=== PATIENT | male | born 1980 | race Caucasian/White ===

== ENCOUNTER 2018-08-12 12:10 | Day surgery (SDC) | payer BC ==
[2018-08-12 12:45] LABS: Bilirubin Negative (Negative); Blood, Urine Negative (Negative); Clarity CLEAR (Clear); Glucose, Urine (Dipstick) Negative (Negative); Leukocyte Negative (Negative); Nitrite Negative (Negative); Protein, Urine (Dipstick) Negative (Neg-Trace); Specific Gravity, Urine 1.002 (1.002-1.036); Urobilinogen 0.2 mg/dL (0.2-1.0)
[2018-08-12 12:48] LABS: #Lymphocytes 1.7 thou/uL (1.20-3.40); #Monocytes 0.9 thou/uL (0.11-0.59); #Neutrophils 6.8 thou/uL (1.40-6.50); %Basophils 0.2 % (0.0-1.0); %Eosinophils 0.2 % (0.0-10.0); %Lymphocytes 17.9 % (21.0-51.0); %Monocytes 9.4 % (0.0-10.0); %Neutrophils 72.3 % (42.0-75.0); Hemoglobin 15.6 g/dL (14.0-18.0); Mean Corpuscular HGB CONC 32.3 g/dL (32.0-36.0); Mean Corpuscular Hemoglobin 28.4 pg (27.0-31.0); Mean Corpuscular Volume 87.8 fL (78.0-98.0); Mean Platelet Volume 7.8 fL (7.4-10.4); Platelet Count 215 thou/uL (130-400); Red Blood Cell (RBC) Count 5.49 mill/uL (4.70-6.10); White Blood Cell (WBC) Count 9.4 thou/uL (4.8-10.8)
[2018-08-12 13:09] LABS: ALT (SGPT) 40 U/L (8-55); AST (SGOT) 26 U/L (5-34); Alkaline Phosphatase 78 U/L (40-150); Anion Gap 14 mmol/L (10-20); BUN (Urea Nitrogen) 11 mg/dL (8.9-20.6); Bilirubin, Total 0.7 mg/dL (0.2-1.2); Calc. Creatinine Clearance 0 mL/min (70-130); Calcium 10.5 mg/dL (7.8-10.44); Carbon Dioxide 27 mmol/L (22-29); Chloride 97 mmol/L (98-107); Estimated GFR-MDRD 70; Globulin 3.7 g/dL (2.4-3.5); Glucose 94 mg/dL (70-105); Lipase 26 U/L (8-78); Protein, Total 8.7 g/dL (6.0-8.3); Sodium 134 mmol/L (136-145)
[2018-08-12] MEDS ORDERED: Iopamidol 370 76% 100 ML VIAL ONE (14:26)
[2018-08-12] MEDS ORDERED: Dexamethasone 20 MG/5 ML VIAL ONE (14:38)
[2018-08-12] MEDS ORDERED: Succinylcholine Chloride 20 MG/ML 10 ml SYRINGE FS ONE (14:38)
[2018-08-12] MEDS ORDERED: Ketorolac Tromethamine 30 MG/ML VIAL ONE (14:38)
[2018-08-12] MEDS ORDERED: Glycopyrrolate 0.2 MG/ML 5 ML SYRINGE ONE (14:38)
[2018-08-12] MEDS ORDERED: Lidocaine 1% PF 5 ML VIAL ONE (14:38)
[2018-08-12] MEDS ORDERED: PROPOFOL 200 MG/20 ML VIAL ONE (14:38)
[2018-08-12] MEDS ORDERED: Ondansetron PF 4 MG/2 ML Vial ONE (14:38)
--- NOTE | 2018-08-12 14:50 | CT ---
CT OF ABDOMEN AND PELVIS PERFORMED WITH INTRAVENOUS CONTRAST ENHANCEMENT: HISTORY: Right lower quadrant pain since yesterday. FINDINGS: The lung bases show some minimal atelectasis in the right base. Some diffuse fatty changes of the li pancho. The spleen measures approximately 10 cm in length. Pancreas and gallbladder regions appear unr emarkable. Right and left adrenal glands and right and left kidneys are normal in appearance. No significant pe riaortic or mesenteric adenopathy. CT OF PELVIS PERFORMED WITH INTRAVNEOUS CONTRAST ENHANCEMENT: There is an enlarged inflamed-appearing appendix. No signs for perforation or abscess. No free flui d, adenopathy, or mass. IMPRESSION: CT findings compatible with appendicitis. POS: JEAN
[2018-08-12] MEDS ORDERED: Meropenem 2 GM in Admixture Fee 1 EACH IVPB SCH (15:15)
[2018-08-12] MEDS ORDERED: Bupivacaine/Epinephrine 0.25% 30 ML VIAL ONE (16:17)
[2018-08-12] MEDS ORDERED: Midazolam HCl 2 mg/2 ml Vial ONE (16:24)
[2018-08-12] MEDS ORDERED: Fentanyl 250 MCG/5 ML VIAL ONE (16:24)
[2018-08-12] MEDS ORDERED: HYDROcodone/Acetaminophen 5/325 mg Tablet ONE (18:55)
--- NOTE | 2018-08-12 19:23 | HP ---
CHIEF COMPLAINT: Right lower quadrant abdominal pain. HISTORY OF PRESENT ILLNESS: This is a 38-year-old male with a 30-hour history of right lower quadran t pain. No nausea or vomiting. He has had a fever to 101.6. His last meal was at 8:30 this morning yogurts and apple. PAST MEDICAL HISTORY: Hypothyroidism. PAST SURGICAL HISTORY: Wrist surgery. MEDICATIONS: Levothyroxine. ALLERGIES: No known drug allergies. 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 No tobacco, rare alcohol. He is . FAMILY HISTORY: Hypothyroidism and coronary artery disease. PHYSICAL EXAMINATION: VITAL SIGNS: Temperature 99.4, pulse 93, blood pressure 111/74, respirations 17, 97% saturation. GENERAL: He is awake, alert, in no apparent distress. HEENT: Unremarkable. LUNGS: Clear. HEART: Regular rate and rhythm. ABDOMEN: Soft. Percussion tender in the right lower quadrant, positive Rovsing's. He has a CT scan consistent with appendicitis. ASSESSMENT: Acute appendicitis. PLAN: Laparoscopic appendectomy. CONSENT: I discussed the planned procedure as well as risk of bleeding, infection, injury to bowel, bladder, need to open. He understands and gives informed consent.
--- NOTE | 2018-08-12 19:45 | OP ---
PREOPERATIVE DIAGNOSIS: Acute appendicitis. SURGEON: Kaveh Champion MD PROCEDURE PERFORMED: Laparoscopic appendectomy. INDICATIONS: This is a 38-year-old male with a 30-hour history of right lower quadrant pain. CT abdi ws appendicitis. FINDINGS: Acute gangrenous appendicitis, nonperforated. DESCRIPTION OF PROCEDURE: After informed consent was obtained, the [facility] and given general endotracheal anesthesia. He was placed in the supine position. His abdomen was prepped and draped in usual fashion. Local anesthesia infiltrated subcutaneously and deep. A s ubumbilical incision was performed. Subcu divided sharply. The fascia was grasped. Two stay suture s of 0 Vicryl was placed to either side of midline. Midline was incised. Digital palpation revealed no local adhesions. A blunt 10/12-mm trocar was inserted. Pneumoperitoneum was created to a pressu re of 15 mmHg. Zero-degree laparoscope was inserted under direct vision. Two 5-mm ports were placed , one suprapubic and one right lateral abdomen. The appendix was plastered against the side wall. T he ileum was attached to it. This was bluntly dissected away. The mesoappendix was divided utilizin g the LigaSure. Base of the appendix divided with the linear 45-mm stapler. The appendix was placed in an Endosac and removed from the abdomen in an Endosac through the umbilical incision. Hemostasis was assured. I noticed there was a serosal tear of about 2 mm in the cecum from a grasper. This wa s closed with a 2-0 silk [id number] tied intracorporeally. Hemostasis was assured. Trocars and retractors were removed. The fascia was closed with interrupted 0 Vicryl suture. The skin was clos ed with interrupted 4-0 Rapide. Dermabond was applied. The patient tolerated the procedure well, tr ansferred to recovery in good condition. Sponge and needle count verified and correct x2.
== END 2018-08-12 20:10 | disposition home or self-care (01) ==
LOC: ERS 12:10
PROVIDERS: ATTEND Surgery
PROC: 0DTJ4ZZ Resection of Appendix, Percutaneous Endoscopic Approach (ICD-10-PCS; principal; 2018-08-12)
DX: K35.31 Acute appendicitis with localized peritonitis and gangrene, without perforation (principal); E03.9 Hypothyroidism, unspecified; Z79.899 Other long term (current) drug therapy
CPT/HCPCS: 74177; 80053; 81003; 83690; 85025; 88304; 96360; J1100; J1885; J2001; J2185; J2250; J2405; J2704; J3010